=== PATIENT | female | born 1990 | race African-American/Black ===

== ENCOUNTER 2019-03-29 08:27 | Day surgery (SDC) | payer MEDICAID ==
[2019-03-26 10:09] LABS: HEMATOCRIT 37.1 % (36.0-47.0); HEMOGLOBIN 12.8 g/dL (12.0-15.5); MEAN CORPUSCULAR HEMOGLOBIN 29.1 pg (27.0-33.4); MEAN CORPUSCULAR HGB CONC 34.4 g/dL (32.0-36.0); MEAN CORPUSCULAR VOLUME 85 fl (80-97); PLATELET COUNT 266 10^3/uL (150-450); RED BLOOD COUNT 4.39 10^6/uL (3.72-5.28); RED CELL DISTRIBUTION WIDTH 13.2 % (11.5-14.0); WHITE BLOOD COUNT 6.2 10^3/uL (4.0-10.5)
[2019-03-26 10:22] LABS: APPEARANCE,URINE CLEAR; BILIRUBIN,URINE NEGATIVE (NEGATIVE); COLOR,URINE YELLOW; GLUCOSE, URINE NEGATIVE (NEGATIVE); KETONES,URINE NEGATIVE (NEGATIVE); LEUKOCYTE ESTERASE,URINE NEGATIVE (NEGATIVE); NITRITE,URINE NEGATIVE (NEGATIVE); PROTEIN,URINE NEGATIVE (NEGATIVE); URINE SPECIFIC GRAVITY 1.013; UROBILINOGEN,URINE NEGATIVE mg/dL (<2.0)
[~2019-03-29 08:27] MED LIST: BUPIVACAINE HCL 0.25 % INJ/PF (2.5 MG/1 ML) 30 ML VIAL ONE; LACTATED RINGERS 1000 ML IV PRN; LIDOCAINE 0.5% INJ-PF (5 MG/ML) 50 ML SDV SUBCUT PRN
[2019-03-29] MEDS ORDERED: FENTANYL CITRATE INJ/PF 100 MCG/2 ML AMPUL ONE (10:11)
[2019-03-29] MEDS ORDERED: MIDAZOLAM 2 MG/2 ML INJ ONE (10:11)
[2019-03-29] MEDS ORDERED: PROPOFOL INJ 200 MG/20 ML VIAL IV ONE (10:11)
[2019-03-29] MEDS ORDERED: DIPHENHYDRAMINE HCL 50 MG/ML VIAL IV PRN (10:32)
[2019-03-29] MEDS ORDERED: OXYCODONE-ACETAMINOPHEN 5-325 MG TABLET PO PRN ×3 (10:32→11:48)
[2019-03-29] MEDS ORDERED: MEPERIDINE HCL/PF INJ 25 MG/1 ML DISP.SYRIN IV PRN (10:32)
[2019-03-29] MEDS ORDERED: PROMETHAZINE HCL INJ 25 MG/1 ML VIAL IV PRN (10:32)
[2019-03-29] MEDS ORDERED: MORPHINE SULFATE 10 MG/ML INJ IV PRN (10:32)
[2019-03-29] MEDS ORDERED: FENTANYL CITRATE INJ/PF 100 MCG/2 ML AMPUL IV PRN ×3 (10:32)
[2019-03-29] MEDS: FENTANYL CITRATE INJ/PF 100 MCG/2 ML AMPUL ONE ×2 (11:05→11:10)
[2019-03-29] MEDS ORDERED: OXYCODONE-ACETAMINOPHEN 5-325 MG TABLET ONE (11:48)
[2019-03-29] MEDS ORDERED: ONDANSETRON HCL INJ/PF 4 MG/2 ML SDV IV PRN (11:49)
[2019-03-29 12:48] VITALS: BP 121/72
[2019-03-29] MEDS ORDERED: IBUPROFEN 800 MG TABLET PO SCH (14:00)
--- NOTE | 2019-03-29 18:00 | OPERATIVE REPORT E ---
Operative Report NAME: FELISA GAN : 1990 AGE: 29Y DATE OF SURGERY: 03/29/2019 ROOM: PREOPERATIVE DIAGNOSIS: Desires sterilization. POSTOPERATIVE DIAGNOSIS: Desires sterilization. OPERATION: Bilateral tubal occlusion using Filshie clips. SURGEON: Kirby MALAVE M.D. ANESTHESIA: General. ESTIMATED BLOOD LOSS: Negligible. TISSUE REMOVED: None. PROCEDURE: The patient was placed in a dorsal lithotomy position, prepped and draped in the usual sterile fashion. A speculum was placed, cervix visualized, grasped with a single-tooth tenaculum. A Hulka tenaculum was placed and single-tooth tenaculum was removed. The speculum was removed. The bladder was drained with a catheter. Attention was turned to the abdomen where a midline subumbilical incision was made. Trocar was introduced with insufflation of the abdomen and visualization of the tubes, uterus, and ovaries. The right fallopian tube was then banded in the mid portion with a good purchase of tissue being noted. The procedure was repeated on the left, again with a good purchase of tissue being noted. Both tubes were identified to the fimbria prior to and after banding. The laparoscope was removed and the abdomen deflated. Trocar and sleeves were removed. The incision was then closed with 0 Vicryl for the fascia and 4-0 subcu. The patient tolerated it well and was taken to recovery in good condition. DICTATING PHYSICIAN: Kirby MALAVE M.D. [id number] PHY#: [id number] ID: [id number] JOB#: [id number] ACCT: [id number] cc:Kirby MALAVE M.D. >
[2019-03-29] MEDS ORDERED: LIDOCAINE 2% INJ-PF (20 MG/ML) 2 ML AMPUL ONE (19:55)
[2019-03-29] MEDS ORDERED: ONDANSETRON HCL INJ/PF 4 MG/2 ML SDV ONE (19:55)
[2019-03-29] MEDS ORDERED: ROCURONIUM BROMIDE INJ 50 MG/5 ML VIAL IV ONE (19:55)
[2019-03-29] MEDS ORDERED: DEXAMETHASONE SOD PHOSPHATE INJ 4 MG/1 ML VIAL ONE (19:55)
[2019-03-29] MEDS ORDERED: NEOSTIGMINE METHYLSULFATE 10 MG/10 ML VIAL ONE (19:55)
[2019-03-29] MEDS ORDERED: KETOROLAC TROMETHAMINE 60 MG/2 ML SDV ONE (19:55)
[2019-03-29] MEDS ORDERED: GLYCOPYRROLATE 1 MG/5 ML VIAL ONE (19:55)
== END 2019-03-29 12:45 | disposition home or self-care (01) ==
LOC: OROUT 08:27
PROVIDERS: ATTEND Obstetrics & Gynecology Gynecology
DX: Z30.2 Encounter for sterilization (principal)
CPT/HCPCS: 36415; 85027; 81005; 81025; 58671; J2250; J3490 ×3; J1100; J1885; J3010; J2710; J2405; S0020; J2704; 851